=== PATIENT | male | born 1970 | race Caucasian/White ===

== ENCOUNTER 2019-09-01 05:45 | Outpatient (CLI) | payer BC, SELFPAY ==
[2019-09-01 16:38] LABS: SARS-CoV-2 RNA PCR Negative
== END 2019-09-01 05:46 | disposition home or self-care (01) ==
LOC: ANHCOVIDDT 05:45
PROVIDERS: PCP Family Medicine; Visit Provider Podiatrist Foot & Ankle Surgery
DX: Z01.818 Encounter for other preprocedural examination (principal); Z11.59 Encounter for screening for other viral diseases
CPT/HCPCS: 87635; C9803; U0003

== ENCOUNTER 2019-09-03 00:59 | Day surgery (SDC) | payer BC, SELFPAY ==
[2019-08-31 08:02] VITALS: BMI 29.2
[2019-09-03] VITALS (9 sets, daily range): BP systolic 113–138; BP diastolic 62–84; PULSE 78–90; RESP 12–20; TEMP 36.3; O2SAT 95–100
--- NOTE | ~2019-09-03 | XR_ITS ---
EXAMINATION: XR surgery orthopedic DATE: 09/03/2019 09:27 INDICATION: Right foot triple arthrodesis TECHNIQUE: 5 fluoroscopic spot images of the right mid and hindfoot were obtained during procedure pe rformed by Dr. Mckeon. Radiologist was not present for the imaging or procedure. The amount of fluo roscopy time used during this procedure was 0.7 minutes. COMPARISON: None. FINDINGS: Right talonavicular arthrodesis with compression screw and staple fixation. Alignment appears to ashley in essentially anatomic. No fractures identified. Remaining joint spaces appear relatively preserved. IMPRESSION: 1. Fluoroscopy utilized during instrumented right talonavicular arthrodesis. See procedure note for f urther detail. Reviewed, dictated and finalized at location A. IMPRESSION: 1. Fluoroscopy utilized during instrumented right talonavicular arthrodesis. Se mckenzie procedure note for further detail.
[2019-09-03] MEDS: LACTATED RINGERS 1,000 ML 30 ML IV CONT ×2 (06:20→09:39)
--- NOTE | 2019-09-03 06:43 | WPDANESEPPF ---
Anes - Initial Pre Proc Eval Procedure: Operation Date: 09/03/19 07:30 Proposed Procedures p Triple Arthrodesis Right Foot - Kunal Mckeon JR, MD Date/Time: 09/03/19 06:43 Surgeon: Kunal Mckeon JR, MD Pre Op Diagnosis: adult acquired flat foot Right with OA Patient Data Age: 48 Gender: M Height: 5 ft 11 in Weight: 95 kg Last Vital Signs Temp 36.3 C L 09/03/19 06:06 Pulse 82 09/03/19 06:06 Resp 20 09/03/19 06:06 BP 138/84 09/03/19 06:06 Pulse Ox 98 09/03/19 06:06 Allergies Allergy/AdvReac Type Severity Reaction Status Date / Time No Known Allergies Allergy Verified 09/03/19 06:13 Home Medications Medication Instructions Recorded Confirmed Type budesonide-formoterol HFA 80 2 puff INHALATION Q12H #10.2 gm 04/30/19 08/31/19 Rx mcg-4.5 mcg/actuation aerosol inhaler montelukast 10 mg tablet 10 mg PO DAILY 04/30/19 08/31/19 History flaxseed oil 1,000 mg PO DAILY 08/31/19 08/31/19 History multivit with min-folic acid 0.4 mg PO DAILY 08/31/19 08/31/19 History [Adult One Daily Multivitamin] omega 5-tzw-yyg-fish oil [Fish Oil] 1 cap PO DAILY 08/31/19 08/31/19 History Patient hx anesthesia problems: none Family hx anesthesia problems: none PMFSH Past Medical History Medical History Asthma Essential hypertension Hypertriglyceridemia Obesity JASMIN on CPAP Family History Family History Grandparent Diabetes mellitus Family history of coronary artery disease Mother Family history of arthritis Social History Social History Smoking status: Never smoker Second hand tobacco smoke exposure: Yes Alcohol intake: current Anes - Eval Final PreProcedure Day of Procedure 09/03/19 06:43 Patient weight: obese Heart: regular rate and rhythm Lungs: clear to auscultation Airway: Mallampati scale class II Neurological: alert and oriented Last oral intake: >/= 8 hours ASA classification: III Emergent: no Anesthetic plan: proceed Anesthesia type and monitoring: general LMA and standard monitoring Informed Consent: The patient's anesthetic plan and its attendant risks and benefits were discussed with the patient/family/POA. Questions were solicited and answers provided to the satisfaction of the patient/family/POA.
--- NOTE | 2019-09-03 07:16 | P.HP_ITS ---
H&P: HPI History of Present Illness Chief complaint: adult acquired flat foot Right with OA Narrative: Zia Weaver is a 48 year old male has ongoing right foot pain due to talipes valgus deformity. Has failed conservative treatment with orthotics, NSAID's, injections rest and immobilization. Seeking surgical correction to relieve pain. [facility] Past Medical History Medical History Asthma Essential hypertension Hypertriglyceridemia Obesity JASMIN on CPAP Family History Family History Grandparent Diabetes mellitus Family history of coronary artery disease Mother Family history of arthritis Social History Social History Smoking status: Never smoker Second hand tobacco smoke exposure: Yes Alcohol intake: current Meds Home Medications and Allergies Home Medications Medication Instructions Recorded Confirmed Type budesonide-formoterol HFA 80 2 puff INHALATION Q12H #10.2 gm 04/30/19 08/31/19 Rx mcg-4.5 mcg/actuation aerosol inhaler montelukast 10 mg tablet 10 mg PO DAILY 04/30/19 08/31/19 History flaxseed oil 1,000 mg PO DAILY 08/31/19 08/31/19 History multivit with min-folic acid 0.4 mg PO DAILY 08/31/19 08/31/19 History [Adult One Daily Multivitamin] omega 4-mhp-woi-fish oil [Fish Oil] 1 cap PO DAILY 08/31/19 08/31/19 History Allergies Allergy/AdvReac Type Severity Reaction Status Date / Time No Known Allergies Allergy Verified 09/03/19 06:13 Vital Signs Vital Signs - 24 hr 09/03/19 06:06 Temperature 36.3 C L Pulse Rate 82 Respiratory Rate 20 Blood Pressure 138/84 Pulse Oximetry 98 Exam Extrem: Other: Decreased medial arch height right with valgus malalignment of right heel and pain along the medial right foot and ankle. Assessment and Plan Additional Plan Adult acquired talipes valgus deformity right foot- Consented for triple arthrodesis right foot.
--- NOTE | 2019-09-03 07:25 | WPDANESPNB ---
Anes - Peripheral Nerve Block Date/Time: 09/03/19 07:25 I have discussed with the patient/family/POA the placement of a peripheral nerve block for post-operative pain management, including associated risks, benefits, complications, and side effects. Alternative methods of post-operative analgesia were detailed. Questions were solicited and answers provided to the satisfaction of the patient/family/POA. Time-Out: A pre-procedural Time-Out was completed immediately before starting the procedure and confirmed: Patient Identification, Site, Procedure, Patient Position and the Availability of Requisite Equipment. Clinical Indications: Acute post-operative pain management requested by the operative surgeon. Nerve Block Insertion Note Anes-nerve block: posterior fossa sciatic right and other (saphenous - right) Patient position: supine Skin prep: chlorhexidine Needle: 22 gauge, stimulating, insulated echogenic needle. Needle length: 80 mm Technique: nerve stimulation lost at (mA) (0.35) Injectate: bupivacaine 0.5% with epi 5 mcg/ml (30 cc popliteal, 10 cc saphenous) Observations: tolerated well Complications: none Procedure start time:: 714 Procedure end time:: 721
[2019-09-03] MEDS: ceFAZolin 2 GM/D5W 50 ML 2 GM/50 ML BAG IVPB (07:28)
--- NOTE | 2019-09-03 10:15 | PM.OP ---
Procedure Note - Brief Procedure Note - Brief Date of procedure: 09/03/19 Pre-op diagnosis: adult acquired flat foot Right with OA Post-op diagnosis: same Procedure performed: Talonavicular joint arthrodesis of the right foot Anesthesia: GLMA Surgeon: Kunal Mckeon JR, DPM Estimated blood loss (mL): 30 Complications: No immediate complications Condition: stable Disposition: same day
--- NOTE | 2019-09-03 16:16 | OP_ITS ---
DATE OF PROCEDURE: 09/03/2019 PREOPERATIVE DIAGNOSES: 1. Talipes valgus, right foot. 2. Osteoarthritis of the right hind foot. POSTOPERATIVE DIAGNOSES: 1. Talipes valgus, right foot. 2. Osteoarthritis of the right hind foot. PROCEDURE: Talonavicular joint fusion, right foot. PATHOLOGY: None. ANESTHESIA: General with a popliteal fossa block. HEMOSTASIS: Pneumatic thigh tourniquet at 300 mmHg. ESTIMATED BLOOD LOSS: 30 cc. MATERIALS USED: 2 [employer] compression morena, 1 [employer] 4.3 mm headless cannulated screw, 3-0 PDS, 4-0 Vicryl, and 4-0 Monocryl. INJECTABLES: None. COMPLICATIONS: None. PROCEDURE IN DETAIL: Under mild sedation, the patient was brought into the operating room, placed on the operating table in the supine position. Pneumatic thigh tourniquet was placed about the patient's right thigh. Following general anesthesia and a previous popliteal fossa block, foot was then scrubbed, prepped, and draped in the usual aseptic manner. An Esmarch bandage was then used to examine the patient's right lower extremity and the pneumatic thigh tourniquet was then inflated. Surgery began in the following manner. Attention was directed to the medial aspect of the right hindfoot. An incision was made starting along the medial gutter of the right ankle and extending to the navicular cuneiform joint. The dissection was continued deep down through the subcutaneous tissues using sharp and blunt dissection. The saphenous vein was visualized just superior to the incision line. The inferior tributaries of the vein were cauterized utilizing electrocautery, next the great saphenous vein was retracted dorsally. At this point, the dissection was continued deep down to the periosteum and capsular structures overlying the talonavicular joint. The talonavicular joint was fully exposed utilizing a 15 blade and a Collins periosteal elevator. The dorsal talonavicular ligament was at this point cut utilizing a 15 blade in order to expose the talonavicular joint dorsolaterally. Next, a joint distractor was positioned along the dorsal medial aspect of the talonavicular joint utilizing two 0.062 inch K-wires. After the K-wires were placed from dorsal to plantar across the talonavicular joint, the distractor was used to open the joint adequately. Next, an ultra cut curved osteotome was used to resect all the cartilage from the head of the talus and base of the navicular. After the cartilage was denuded, the ultra cut osteotome was used to fish scale both the head of the talus as well as the base of the navicular. Next, the 2-0 drill bit was used to also fenestrate the subchondral plate to the entire head of the talus and base of the navicular. After adequate preparation of the arthrodesis site was performed, the talus and navicular were appropriately positioned utilizing three 0.062 inch K-wires. AP and lateral view were taken of the right foot and the correction of the hindfoot deformity was reduced. The talocalcaneal angle was parallel on AP view. Talar head coverage was within normal limits and the calcaneal inclination angle was improved to a normal position. The decision was made to only perform a talonavicular fusion instead of the triple arthrodesis as that was originally planned. Next, a guidewire for a [employer] 4.3 mm partially-threaded cannulated headless screw was driven from distal plantar medial on the navicular tuberosity into the talar neck. Excellent compression was noted after driving the screw. Next, retraction was performed dorsolaterally across the talonavicular joint where there was a 20 x 20 mm Nitinol compression staple from [employer] that was driven from dorsal to plantar across the talonavicular joint and finally an 18 x 16 mm [employer] Nitinol comp
== END 2019-09-03 11:48 | disposition home or self-care (01) ==
PROVIDERS: PCP Family Medicine; Visit Provider Podiatrist Foot & Ankle Surgery
PROC: (CPT 28750; principal; 2019-09-03 07:30)
DX: M21.071 Valgus deformity, not elsewhere classified, right ankle (principal); M19.071 Primary osteoarthritis, right ankle and foot; I10 Essential (primary) hypertension; E78.1 Pure hyperglyceridemia; J45.909 Unspecified asthma, uncomplicated; G47.33 Obstructive sleep apnea (adult) (pediatric); E66.9 Obesity, unspecified; Z68.29 Body mass index [BMI] 29.0-29.9, adult
CPT/HCPCS: 28740; J0690; J1100; J2250; J2405; J2704; J3010; J7120

== ENCOUNTER 2019-12-29 02:00 | Outpatient (CLI) | payer BC, SELFPAY ==
[2019-12-29 19:20] LABS: SARS-CoV-2 RNA PCR Negative
== END 2019-12-29 02:01 | disposition home or self-care (01) ==
LOC: ANHCOVIDDT 02:00
PROVIDERS: PCP Family Medicine; Visit Provider Internal Medicine Gastroenterology
DX: Z01.812 Encounter for preprocedural laboratory examination (principal); Z20.828 Contact with and (suspected) exposure to other viral communicable diseases
CPT/HCPCS: 87635; C9803; U0003

== ENCOUNTER 2019-12-31 01:49 | Day surgery (SDC) | payer BC, SELFPAY ==
[2019-12-22 10:10] VITALS: BMI 30.4
[2019-12-31 08:43] VITALS: BP 147/90; PULSE 73; RESP 20; TEMP 36.5; O2SAT 100; BMI 29.9
[2019-12-31] MEDS: LACTATED RINGERS 1,000 ML 150 ML IV CONT (08:49)
--- NOTE | 2019-12-31 08:53 | WPDANESEPPF ---
Anes - Initial Pre Proc Eval Procedure: Operation Date: 12/31/19 09:00 Proposed Procedures p Screening Colonoscopy - Louie Davila MD Date/Time: 12/31/19 08:53 Surgeon: Louie Davila MD Pre Op Diagnosis: Neoplasm Screening Patient Data Age: 49 Gender: M Height: 1.8 m Weight: 97.3 kg Last Vital Signs Temp 36.5 C 12/31/19 08:43 Pulse 73 12/31/19 08:43 Resp 20 12/31/19 08:43 BP 147/90 H 12/31/19 08:43 Pulse Ox 100 12/31/19 08:43 Allergies Allergy/AdvReac Type Severity Reaction Status Date / Time No Known Allergies Allergy Verified 12/31/19 08:39 Home Medications Medication Instructions Recorded Confirmed Type budesonide-formoterol HFA 80 2 puff INHALATION Q12H #10.2 gm 04/30/19 12/31/19 Rx mcg-4.5 mcg/actuation aerosol inhaler montelukast 10 mg tablet 10 mg PO DAILY 04/30/19 12/31/19 History Adult One Daily Multivitamin 0.4 mg PO DAILY 08/31/19 12/31/19 History omega 7-xnx-crj-fish oil [Fish Oil] 1 cap PO DAILY 08/31/19 12/31/19 History Patient hx anesthesia problems: none Family hx anesthesia problems: none [facility] Social History Social History Smoking status: Never smoker Tobacco type: pipe Second hand tobacco smoke exposure: Yes Alcohol intake: current Drinks per week: 7 Substance use type: does not use Living arrangements: with family Gender identity (if verbalized by the patient): Male Spiritual care concerns: No Anes - Eval Final PreProcedure Day of Procedure 12/31/19 08:53 Patient weight: overweight Heart: regular rate and rhythm Lungs: clear to auscultation and normal air movement Airway: Mallampati scale class II Neurological: alert and oriented Last oral intake: >/= 8 hours ASA classification: II Emergent: no Anesthetic plan: proceed Anesthesia type and monitoring: general GIVS Informed Consent: The patient's anesthetic plan and its attendant risks and benefits were discussed with the patient/family/POA. Questions were solicited and answers provided to the satisfaction of the patient/family/POA.
[2019-12-31 09:24] VITALS: BP 107/71; PULSE 82; RESP 14; O2SAT 100
--- NOTE | 2019-12-31 09:24 | PM.HPGS ---
History of Present Illness History of Present Illness Consent: Risks, benefits, and alternatives have been discussed and questions answered. Patient agrees to proceed with procedure. Chief complaint: Neoplasm Screening Narrative: Zia Weaevr is a 49 year old male here for first colonoscopy Review of Systems Constitutional: Constitutional: Denies headache(s) and Denies weakness Eyes: Eyes: Denies blurry vision ENT: Reports Normal hearing present, Denies headache(s) and Denies neck pain Cardiovascular: Cardiovascular: Denies chest pain and Denies dyspnea Respiratory: Respiratory: Denies dyspnea Gastrointestinal: Gastrointestinal: Reports no additional gastrointestinal complaints Genitourinary: Genitourinary: Denies dysuria Musculoskeletal: Musculoskeletal: Denies neck pain Integumentary/Breasts: Skin/Breast: Denies dry skin Neurologic: Reports Normal hearing present, Denies headache(s) and Denies weakness Psychiatric: Psychiatric: Denies anxiety Endocrine: Endocrine: Denies change in body appearance Hematologic/Lymphatic: Hematologic/Lymphatic: Denies easy bleeding Allergic/Immunologic: Allergic/Immunologic: Denies urticaria PMFSH Social History Social History Smoking status: Never smoker Tobacco type: pipe Second hand tobacco smoke exposure: Yes Alcohol intake: current Drinks per week: 7 Substance use type: does not use Living arrangements: with family Gender identity (if verbalized by the patient): Male Spiritual care concerns: No Meds Home Medications and Allergies Home Medications Medication Instructions Recorded Confirmed Type budesonide-formoterol HFA 80 2 puff INHALATION Q12H #10.2 gm 04/30/19 12/31/19 Rx mcg-4.5 mcg/actuation aerosol inhaler montelukast 10 mg tablet 10 mg PO DAILY 04/30/19 12/31/19 History Adult One Daily Multivitamin 0.4 mg PO DAILY 08/31/19 12/31/19 History omega 9-bdv-wiu-fish oil [Fish Oil] 1 cap PO DAILY 08/31/19 12/31/19 History Allergies Allergy/AdvReac Type Severity Reaction Status Date / Time No Known Allergies Allergy Verified 12/31/19 08:39 Vital Signs Vital Signs - 24 hr 12/31/19 08:43 Temperature 97.7 F Pulse Rate 73 Respiratory Rate 20 Blood Pressure 147/90 H Pulse Oximetry 100 Exam Const: General: comfortable and no acute distress HENMT: General nose exam: Normal nares present Eyes: General: appearance normal, both eyes and all related structures Neck: Neck: no JVD Resp: Auscultation: clear to auscultation bilaterally Cardio: Rate: regular rate Rhythm: regular rhythm GI: Inspection: non-distended GI Palp: Yes Soft to palpation Skin: General skin exam: normal color Neuro: General: gait normal Speech: normal speech Extrem: General: normal to inspection Psych: Mental Status: mental status grossly normal Assessment and Plan Assessment and plan (1) Colon cancer screening: Code(s): Z12.11 - Encounter for screening for malignant neoplasm of colon Status: Acute Assessment and Plan: will proceed with colonoscopy (2) Essential hypertension: Code(s): I10 - Essential (primary) hypertension Status: Acute
[2019-12-31 09:34] VITALS: BP 116/80; PULSE 60; RESP 14; O2SAT 100
[2019-12-31 09:44] VITALS: BP 110/70; PULSE 69; RESP 18; O2SAT 100
== END 2019-12-31 10:07 | disposition home or self-care (01) ==
PROVIDERS: PCP Family Medicine; Visit Provider Internal Medicine Gastroenterology
PROC: 0DJD8ZZ Inspection of Lower Intestinal Tract, Via Natural or Artificial Opening Endoscopic (ICD-10-PCS; CPT 45378; principal; 2019-12-31 09:00)
DX: Z12.11 Encounter for screening for malignant neoplasm of colon (principal); I10 Essential (primary) hypertension
CPT/HCPCS: 45378; J2704; J7120